=== PATIENT | female | born 1970 | race Caucasian/White ===

== ENCOUNTER 2018-05-10 21:57 | Emergency (ER) | payer SELFPAY ==
[2018-05-10 22:10] VITALS: BP 109/74; PULSE 71; RESP 18; TEMP 98.1; O2SAT 98
--- NOTE | 2018-05-10 22:43 | C.PDOC ---
History Of Present Illness Pt presents to ED with c/o of generalized pruritic rash and feeling that her face is puffy. Pt states construction is underway in her apartment bldg and feels like condition is unsanitary which may be causing her symptoms. Pt denies fever, SOB, oral lesions Time Seen by Provider: 05/10/18 22:20 Chief Complaint (Nursing): Abnormal Skin Integrity History Per: Patient History/Exam Limitations: no limitations Quality Of Symptoms: Itching Severity: Mild Recent travel outside of the [place]: No Past Medical History Vital Signs: Last Vital Signs Temp 98.1 F 05/10/18 22:10 Pulse 71 05/10/18 22:10 Resp 18 05/10/18 22:10 BP 109/74 05/10/18 22:10 Pulse Ox 98 05/10/18 22:46 - Medical History PMH: Anxiety, Asthma, HTN, Hypothyroidism - [facility] Procedures INJECT/INFUSE NEC (05/11/14) Family History: States: Unknown Family Hx - Social History Hx Alcohol Use: No Hx Substance Use: No - Immunization History Hx Tetanus Toxoid Vaccination: No Hx Influenza Vaccination: No Hx Pneumococcal Vaccination: No Review Of Systems Constitutional: Negative for: Fever, Chills ENT: Negative for: Throat Pain, Throat Swelling Cardiovascular: Negative for: Palpitations Respiratory: Negative for: Cough, Shortness of Breath, Wheezing Skin: Positive for: Rash Physical Exam - Physical Exam Appears: Well, Non-toxic, No Acute Distress Skin: Rash (one erythematous papule on right arm and one on right foot , well demarcated erythematous rash beneath b/lbreast folds, no draining, no erythema, no hives ) Head: Atraumatic Eye(s): bilateral: Normal Inspection Tongue: Normal Appearing, No Swelling Lips: Normal Appearing, No Swelling Throat: Normal, No Erythema Cardiovascular: Rhythm Regular Respiratory: Normal Breath Sounds, No Wheezing Extremity: Bilateral: Atraumatic, Normal Color And Temperature Neurological/Psych: Oriented x3, Normal Speech Gait: Steady ED Course And Treatment O2 Sat by Pulse Oximetry: 98 Progress Note: Pt with 2 isolated papules and fungal appearing rash to b/ l breast folds. Advised antiallergy tabs for itching and antifungal cream. Advised follow up with PMD Disposition Counseled Patient/Family Regarding: Diagnosis, Need For Followup, Rx Given - Disposition Referrals: Rosie Guerrero MD [Staff Provider] - Disposition: HOME/ ROUTINE Disposition Time: 22:40 Condition: STABLE Additional Instructions: Please follow up with PMD Use cream as directed Use zyrtec for itching Return to ER if wors e Prescriptions: Cetirizine HCl [Zyrtec] 10 mg PO DAILY #14 capsule Clotrimazole 1% Cream [Lotrimin 1%] 1 appl TP BID #60 g Forms: [employer] (Romansh) - Clinical Impression Clinical Impression: Fungal rash of torso, Pruritus
== END 2018-05-10 23:11 | disposition home or self-care (01) ==
LOC: C.ER 21:57
DX: B36.8 Other specified superficial mycoses (principal); L29.9 Pruritus, unspecified